=== PATIENT | male | born 1990 | race American Indian/Alaskan Native ===

== ENCOUNTER 2019-10-13 18:03 | Emergency (ER) | payer BC ==
[2019-10-13] MEDS ORDERED: Fluorescein 1 MG Ophth Strip EYELF ONE (18:07)
[2019-10-13] MEDS ORDERED: Tetracaine HCl/PF 0.5% 4 ML Bottle EYELF ONE (18:07)
[2019-10-13] MEDS ORDERED: Gentamicin 0.3% Ophth Soln 5 ML Bottle EYELF ONE (18:08)
[2019-10-13 18:21] VITALS: BP 136/77; PULSE 88
--- NOTE | 2019-10-13 18:31 | EDM.PDOC ---
<Elida Platt - Last Filed: 10/13/19 18:26> ED HPI GENERAL MEDICAL PROBLEM - General Chief Complaint: Eye Problems Stated Complaint: METAL PIECE IN LEFT EYE Time Seen by Provider: 10/13/19 18:20 Source of Information: Reports: Patient History Limitations: Reports: No Limitations - History of Present Illness INITIAL COMMENTS - FREE TEXT/NARRATIVE: Patient presents to ED by private vehicle with concerns of foreign body in left eye. The patient states he was using a roll contour grinder on a metal object yesterday and had a sensation of a foreign body in his left eye since. The patient states that he attempted to remove a foreign body by q-tip last night. The patient denies blurred vision, vision changes. Patient states tetanus is up to date. Onset Date: 10/12/19 Duration: Constant Location: Reports: Other (left eye) Quality: Reports: Sharp Severity: Moderate Improves with: Reports: None Worsens with: Reports: None Associated Symptoms: Reports: No Other Symptoms Left Eye Pain Score (Numeric/FACES): 6 - Related Data Allergies Allergy/AdvReac Type Severity Reaction Status Date / Time cefaclor [From Ceclor] Allergy Hives Verified 10/13/19 18:21 chocolate Allergy Hives Uncoded 10/13/19 18:13 Home Meds: Home Meds . [No Known Home Meds] 01/09/15 [History] Past Medical History - Past Health History Medical/Surgical History: Denies Medical/Surgical History - Past Surgical History HEENT Surgical History: Reports: Other (See Below) Musculoskeletal Surgical History: Reports: Arthroscopic Knee Social & Family History - Tobacco Use Smoking Status *Q: Current Every Day Smoker Years of Tobacco use: 5 Packs/Tins Daily: 0.5 ED ROS GENERAL - Review of Systems Review Of Systems: Comprehensive ROS is negative, except as noted in HPI. ED EXAM GENERAL W FULL EYE - Physical Exam Exam: See Below Exam Limited By: No Limitations Eye Exam: Bilateral Eye: PERRL Eyelids: Bilateral: Normal Appearance Conjunctiva & Sclera: Right: Normal Appearance, Left: Injected Cornea Exam: Right: Normal Appearance, Left: Corneal Abrasion (at approximately 3 o'clock, without identified foreign body) Extraocular Movements: Bilateral: Intact Pupils: Normal Accommodation Pupillary Reaction: Bilateral: Brisk Head: Atraumatic, Normocephalic Respiratory/Chest: No Respiratory Distress Neurological: Alert, Oriented Psychiatric: Normal Affect, Normal Mood Course - Vital Signs Last Recorded V/S: Last Vital Signs Temp 97.6 F 10/13/19 18:14 Pulse 88 10/13/19 18:14 Resp 16 10/13/19 18:14 BP 136/77 10/13/19 18:14 Pulse Ox 95 10/13/19 18:14 - Orders/Labs/Meds Meds: Medications Discontinued Medications Generic Name Dose Route Start Last Admin Trade Name Gibson PRN Reason Stop Dose Admin Fluorescein Sodium 1 mg 10/13/19 18:07 10/13/19 18:35 Ful-Hortensia EYELF 10/13/19 18:08 1 mg ONETIME ONE Administration Gentamicin Sulfate 1 ml 10/13/19 18:08 10/13/19 18:35 Garamycin 0.3% Ophth Soln EYELF 10/13/19 18:09 1 drop ONETIME ONE Administration Tetracaine HCl 1 ml 10/13/19 18:07 10/13/19 18:35 Tetracaine 0.5% Steri-Unit Catherine EYELF 10/13/19 18:08 1 drop ONETIME ONE Administration Departure - Departure Time of Disposition: 18:26 Disposition: Home, Self-Care 01 Condition: Good Clinical Impression: Corneal abrasion Qualifiers: Laterality: left - Discharge Information *PRESCRIPTION DRUG MONITORING PROGRAM REVIEWED*: Not Applicable *COPY OF PRESCRIPTION DRUG MONITORING REPORT IN PATIENT ABBEY: Not Applicable Instructions: Corneal Abrasion Forms: ED Department Discharge Additional Instructions: Gentamicin 1 drop to left eye 4 times a day for 5 days Tetracaine 1 drop to left eye every 4 hours as needed for pain. Do not use for more than 24 hours Follow-up in eye clinic in 2-3 days for recheck Wear eye protection as needed Sepsis Event Note - Evaluation Sepsis Screening Result: No Definite Risk - Focused Exam Vital Signs: Vital Signs Temp Pulse Resp BP Pulse Ox 10/13/19 18:14 97.6 F 88 16 136/77 95 Date Exam was Performed: 10/13/19 Time Exam was Performed: 18:26 <Nahid Mejia - Last Filed: 10/13/19 18:36> Course - Re-Assessments/Exams Free Text/Narrative Re-Assessment/Exam: 10/13/19 18:36 I personally performed or re-performed the physical examination and medical decision making. I have verified all student documentation or findings, including history, physical exam and/or medical decision making. Sepsis Event Note - Focused Exam Date Exam was Performed: 10/13/19 Time Exam was Performed: 18:36
== END 2019-10-13 18:41 | disposition home or self-care (01) ==
LOC: DL.ED 18:03
DX: S05.02XA Injury of conjunctiva and corneal abrasion without foreign body, left eye, initial encounter (principal); F17.210 Nicotine dependence, cigarettes, uncomplicated; Z88.1 Allergy status to other antibiotic agents; Z91.018 Allergy to other foods; X58.XXXA Exposure to other specified factors, initial encounter; Y93.89 Activity, other specified
CPT/HCPCS: 99283; A9270